=== PATIENT | male | born 1985 | race Caucasian/White ===

== ENCOUNTER 2018-10-05 10:45 | Emergency (ER) | payer SELFPAY ==
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
[2018-10-05] MEDS: 0.9 % SODIUM CHLORIDE 1,000 ML IV ONE (11:30)
[2018-10-05 11:31] LABS: BASOPHILS % 0.5 % (0.0-1.5); NEUTROPHILS # 8.1 # k/uL (1.4-7.7)
[2018-10-05 11:47] LABS: eGFR (Non-African) > 60
[2018-10-05 13:22] LABS: APPEARANCE,URINE CLEAR (CLEAR); CANNABINOIDS NEGATIVE ng/mL (< 50); COLOR,URINE YELLOW (YELLOW); METHYLENEDIOXYMETHAMPHETAMINE NEGATIVE ng/mL (<500); OCCULT BLOOD,URINE NEGATIVE (NEGATIVE); UROBILINOGEN URINE 0.2 Eu (0.2-1.0)
--- NOTE | 2018-10-05 13:35 | Diagnostic Imaging Report ---
LILY SHEIKH [facility] [address] [facility] [address] [place], [place]. [address] Report Submission Date: Oct 05, 2018 12:26:11 PM CDT Patient Study Name: LISA LOPEZ Date: Oct 05, 2018 11:39:44 AM CDT Modality Type: CT\SR Gender: M Description: CT BRAIN W/O CONTRAST : 89 Institution: [facility] Physician: LILY SHEIKH Examination: CT head without contrast History: ALTERED MENTAL STATUS Comparison exam: None available Technique: Noncontrast head CT protocol. Findings: Ventricles and sulci are appropriate for patient age. Cerebrocerebellar parenchyma demonstrates normal attenuation. No evidence for parenchymal hemorrhage. No evidence for mass or mass effect. No midline shift. No extra axial fluid collections. Partial visualization of the paranasal sinuses, mastoid air cells, orbits, skull and scalp without gross irregularity. Impression: No acute parenchymal process. No hemorrhage. Electronically signed on Oct 05, 2018 12:26:11 PM CDT by: Jared NAZARIO
[2018-10-05 13:38] VITALS: BP 106/45
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
== END 2018-10-05 13:25 | disposition short-term general hospital (02) ==
LOC: ED 10:45
DX: T76.22XA Child sexual abuse, suspected, initial encounter (principal)
CPT/HCPCS: 36415; 70450; 70491; 74177; 80053; 80074; 80320; 80377; 81002; 85025; 86694; 86703; 87491; 87591; 96360; 99283; G0480; G0481; J7030; Q9967; S1016